=== PATIENT | male | born 1960 | race Caucasian/White ===

== ENCOUNTER → 2018-04-29 | Outpatient (CLI) | payer BC ==
--- NOTE | 2018-04-29 13:26 | MR ---
EXAMINATION TYPE: MR angio head wo con DATE OF EXAM: 04/29/2018 COMPARISON: NONE HISTORY: Vascular headaches TECHNIQUE: Utilizing 3-D [id number] intracranial MRA of the [place] of [place] was performed. FINDINGS: The vertebrobasilar and carotid systems are patent. There is mild fusiform prominence of the right M CA trifurcation but no saccular aneurysm. Measures approximately 2 mm on the right compared to the le ft which measures 1 mm.. Posterior cerebral artery on the left originates from the anterior circulat ion. IMPRESSION: 1. There is mild fusiform prominence of the trifurcation of the right middle cerebral artery without distinct evidence of saccular aneurysm. This could be followed on a 6 month basis to confirm stabili ty.
--- NOTE | 2018-04-29 14:09 | MR ---
EXAMINATION TYPE: MR brain wo con DATE OF EXAM: 04/29/2018 COMPARISON: NONE HISTORY: Vascular headaches T1-weighted sagittal, T2, FLAIR, and diffusion axial, and T2 coronal coronal views of the brain are s ubmitted. There is no evidence of acute ischemia. The ventricles, basal cisterns, and sulci overlying the conv exities are consistent with the patient's age. There is no mass effect. Craniocervical junction maintained. Sella turcica has a normal appearance. Changes of chronic sinusit is noted. White matter: There are a couple less than 5 mm areas of abnormal signal within the left parietal whi te matter of doubtful significance Nasal septal deviation noted No cerebellopontine angle mass. IMPRESSION: 1. No acute intracranial process there are 2 tiny foci of abnormal signal the white matter questionab le significance located within the left parietal deep white matter.
== END | disposition home or self-care (01) ==
LOC: RADMRIMAIN 11:40
PROVIDERS: ATTEND Psychiatry & Neurology Neurology
DX: G44.1 Vascular headache, not elsewhere classified (principal); Z82.49 Family history of ischemic heart disease and other diseases of the circulatory system; Z86.73 Personal history of transient ischemic attack (TIA), and cerebral infarction without residual deficits
CPT/HCPCS: 70544; 70551

== ENCOUNTER → 2020-05-19 | Outpatient (CLI) | payer BC ==
--- NOTE | 2020-05-19 09:56 | CTL ---
EXAMINATION TYPE: CT Low Dose Lung DATE OF EXAM ORDERED: 05/19/2020 HISTORY: Personal history of tobacco use. Current everyday smoker. Productive cough. Lung cancer scre ening CT DLP: [address] CTDI: 2.03 mGy Automated exposure control for dose reduction was used. SCREENING VISIT: Yes COMPARISON: None TECHNIQUE: Low dose computed tomography scan was performed through the chest at 1 mm thick sections a nd reconstructed images in the coronal plane at [address] DIAGNOSTIC QUALITY: Satisfactory FINDINGS: LUNG NODULES: Present, detailed below: Right lower lobe solid 4 mm nodule (5:200). Right upper lobe subpleural solid 4 mm nodule (5:70, 6:160). Right upper lobe nodule solid 2 mm nodule (5:39). Right upper lobe solid 2 mm nodule (5:69). Left upper lobe calcified 2 mm granuloma (5:109). LUNGS: COPD: Severity: Mild Fibrosis: Severity: Mild Lymph nodes: None Other findings: Mild bronchiectasis. Mild debris within the mainstem bronchi. RIGHT PLEURAL SPACE: Effusion: None Calcification: None Thickening: None Pneumothorax: None LEFT PLEURAL SPACE: Effusion: None Calcification: None Thickening: None Pneumothorax: None HEART: Heart Size: Normal Coronary calcification: Mild Pericardial effusion: None OTHER FINDINGS: Upper abdomen: Calcified splenic granuloma Bony thorax: No acute osseous abnormality Supraclavicular region: Normal Other: IMPRESSION: 1. Scattered pulmonary nodules up to 4 mm. 2. Emphysematous changes with mild debris seen within the mainstem bronchi. FOLLOW UP CT CHEST RECOMMENDATION: Annual low-dose lung CT screening CT LUNG RAD: Lung-Rad 2 Benign Appearance or Behavior
== END | disposition home or self-care (01) ==
LOC: RADCTMAIN 08:01
PROVIDERS: ATTEND Family Medicine
DX: Z12.2 Encounter for screening for malignant neoplasm of respiratory organs (principal); J43.9 Emphysema, unspecified; R91.8 Other nonspecific abnormal finding of lung field; F17.210 Nicotine dependence, cigarettes, uncomplicated

== ENCOUNTER → 2022-07-19 | Outpatient (CLI) | payer OTHER ==
--- NOTE | 2022-07-19 10:27 | CA ---
Exercise Stress Test Report Name: Chong Mott Exam Date: 07/19/2022 08:52 Exam Location: [place] Stress Ht (in): 72 Wt (lb): 220 BSA: 2.22 Ordering Phys: Bernardino Tang MD Referring Phys: TJ, Technologist: Romario Sow Age: 61 Gender: M : 1960 Procedure CPT: Indications: I10 HTN, Z82.49 FAMILY HX OF ISCHEM HEART DIS ICD-10 Codes: Patient History: Family history of heart disease and Shortness of breath Medications: Meds past 24 hrs: Pretest Chest Pain: STRESS TEST Mychal Protocol Exercise Duration (min:sec): 07:[address] Depressions (mm): Angina Score: Bhatia Score: Resting HR (bpm): 55 Peak HR (bpm): 153 Resting BP (mmHg): 128 / 86 Peak BP (mmHg): 191 / 113 MPHR: 157 Target HR: 133 % MPHR: 97 METS: 8.9 Total Dose: Peak Dose: Atropine: Double Product: 29256 BP Response: Stress Termination: Reached target heart rate Stress Symptoms: No chest pain or symptoms Stress Summary: ECG ANALYSIS Resting ECG: Normal sinus rhythm left axis deviation and poor R-wave progression Stress ECG: Average exercise tolerance Negative stress test by EKG criteria CONCLUSIONS Average exercise tolerance Negative stress test by EKG criteria PVCs including couplets were noted at peak exercise Dr. Rafa Holland MD (Electronically Signed) Final Date: 19 July 2022 10:26
== END | disposition home or self-care (01) ==
LOC: RADNMMAIN 08:26
PROVIDERS: ATTEND Family Medicine
DX: I10 Essential (primary) hypertension (principal); Z82.49 Family history of ischemic heart disease and other diseases of the circulatory system
CPT/HCPCS: 93017

== ENCOUNTER 2023-12-17 06:37 | Day surgery (SDC) | payer MEDICARE, OTHER ==
[~2023-12-17 06:37] MED LIST: LIDOCAINE 1% (10MG/ML) FOR IV START INTRADERMA PRN
[2023-12-17] MEDS ORDERED: HYDROmorphone 0.5 MG/0.5 ML SYRINGE IVP PRN (07:00)
[2023-12-17] MEDS ORDERED: MIDAZOLAM 2 MG/2 ML VIAL IV PRN (07:00)
[2023-12-17] MEDS: LACTATED RINGERS 1,000 ML IV SCH (07:16)
[2023-12-17] MEDS: ACETAMINOPHEN TAB 500 MG TAB PO PRN (07:51)
[2023-12-17] MEDS: DEXAMETHASONE SOD PHOSPHATE 4 MG/ML 1 ML VIAL IV ONE (07:51)
[2023-12-17] MEDS: ONDANSETRON 4 MG/2 ML VIAL IVP ONE (07:51)
[2023-12-17 07:54] VITALS: TEMP 97
[2023-12-17] MEDS: MIDAZOLAM 2 MG/2 ML VIAL IVP ONE (07:57)
--- NOTE | 2023-12-17 08:15 | P.ANPRN ---
Procedure Note - Anesthesia - Nerve Block Performed Right Erector Spinae Single Time Out Performed: Yes Date of Procedure: 12/17/23 Procedure Start Time: 07:57 Procedure Stop Time: 08:02 Location of Patient: PreOp Indication: Acute Post-Operative Pain, Requested by Surgeon Sedation Type: Sedate with meaningful contact maintained Preparation: Sterile Prep Position: Prone Catheter: None Needle Types: Pajunk Needle Gauge: 21 Ultrasound used to visualize needle placement: Yes Ultrasound used to observe medication spread: Yes Injectate: 0.5% Ropivacaine (see comment for volume) (Ropiv 20mdecadron 4mg----each side . At T11 level) Blood Aspirated: No Pain Paresthesia on Injection Noted: No Resistance on Injection: Normal Image Stored and Saved: Yes
[2023-12-17 08:17] LABS: ALT 74 U/L (4-49); AST 52 U/L (17-59); African American GFR (CKD) >90 (>60 ml/min/1.73 sqM); Albumin 3.9 g/dL (3.5-5.0); Alkaline Phosphatase 72 U/L (38-126); Anion Gap 8 mmol/L; Blood Urea Nitrogen 22 mg/dL (9-20); Calcium 8.9 mg/dL (8.4-10.2); Carbon Dioxide 20 mmol/L (22-30); Chloride 110 mmol/L (98-107); Glucose 132 mg/dL (74-99); Non-African American GFR(CKD) >90 (>60 ml/min/1.73 sqM); Sodium 138 mmol/L (137-145); Total Bilirubin 0.8 mg/dL (0.2-1.3); Total Protein 6.7 g/dL (6.3-8.2)
[2023-12-17] MEDS: HEPARIN SODIUM,PORCINE 5,000 UNIT/ML 1 ML VIAL SQ PRN (08:17)
[2023-12-17] MEDS ORDERED: ROCURONIUM 10 MG/ML (5 ML VIAL) IV ONE (08:31)
[2023-12-17] MEDS ORDERED: KETOROLAC 15 MG/ML 1 ML VIAL ONE (08:31)
[2023-12-17] MEDS ORDERED: SUCCINYLCHOLINE CHLORIDE 200 MG/10 ML VIAL IV ONE (08:31)
[2023-12-17] MEDS ORDERED: ROPIVACAINE 5 MG/ML 30 ML VIAL ONE (08:31)
[2023-12-17] MEDS ORDERED: DEXAMETHASONE SOD PHOSPHATE 4 MG/ML 1 ML VIAL ONE (08:31)
[2023-12-17] MEDS ORDERED: GLYCOPYRROLATE 0.2 MG/ML 2 ML VIAL ONE (08:31)
[2023-12-17] MEDS ORDERED: fentaNYL (PF) 50 MCG/ML 2 ML AMP ONE (08:31)
[2023-12-17] MEDS ORDERED: PROPOFOL 10 MG/ML 20 ML VIAL IV ONE (08:31)
[2023-12-17] MEDS ORDERED: LIDOCAINE 1% INJ 10MG/ML (20 ML MDV) ONE (08:31)
[2023-12-17] MEDS ORDERED: KETAMINE HCL IN 0.9 % NACL 50 MG/5 ML SYRINGE ONE (08:31)
[2023-12-17] MEDS ORDERED: NEOSTIGMINE 1 MG/ML 10 ML VIAL ONE (08:31)
--- NOTE | 2023-12-17 09:40 | P.OP ---
Date of Procedure: 12/17/23 Preoperative Diagnosis: Right inguinal hernia, right hydrocele Postoperative Diagnosis: Same Procedure(s) Performed: Open repair of right inguinal hernia Excision of right hydrocele Anesthesia: JENNIFER Surgeon: Bernardino Taylor Estimated Blood Loss (ml): 10 Pathology: other (Right inguinal hernia) Condition: stable Disposition: PACU Description of Procedure: The patient's placed on the operative table in the supine position. He received general endotracheal tube anesthesia.His abdomen was prepped and draped usual sterile fashion. The standard inguinal hernia incision was made in the right inguinal area. Electrocautery and sharp and blunt dissection the subcutaneous tissue divided. The fascia extremity was exposed. A sabine in the fascia was made with a 15 blade and then using a pair metastases months scissors the fascia was opened. The hernia sac was seen. Hernia sac was dissected from the anterior medial area of the cord. The hernia sac underwent high ligation with 0 Vicryl tie. The testicle prWas brought up in the wound. The testicle was examined and there was a large hydrocele. Hydrocele was opened is electrocautery. The hydrocele was drained. Testicles placed back in the scrotum. The hernias repaired using the Prolene hernia mesh system. The mediu m-sized mesh was placed into the prepared space. Inferiorly the expanded. The superior leaf was attached to the pubic tubercle medially. The lateral leaf was incised and wrapped around the cord and secured with 2-0 Prolene suture. The fascia external oblique was then closed with 0 Vicryl. Trista's fascia closed with 2-0 Vicryl. Skin was closed with interrupted 3-0 Monocryl suture. Dermabond was applied. Patient top she will. She was sent to recovery in stable condition.
[2023-12-17] MEDS: HYDROmorphone 0.5 MG/0.5 ML SYRINGE IVP ONE ×2 (10:05→10:13)
[2023-12-17] MEDS: LACTATED RINGERS 1,000 ML IV ONE (10:07)
[2023-12-17 11:16] VITALS: BP 146/89; PULSE 70; RESP 16
== END 2023-12-17 11:45 | disposition home or self-care (01) ==
LOC: OR 06:37
PROVIDERS: ATTEND Surgery
DX: K40.90 Unilateral inguinal hernia, without obstruction or gangrene, not specified as recurrent (principal); N43.3 Hydrocele, unspecified; I10 Essential (primary) hypertension; E78.5 Hyperlipidemia, unspecified; K21.9 Gastro-esophageal reflux disease without esophagitis; Z87.891 Personal history of nicotine dependence; Z79.899 Other long term (current) drug therapy; Z98.890 Other specified postprocedural states
CPT/HCPCS: 49505; 55040; 64999; 80053; 88302; C1781; J2250; J0330; J1644; J1100; J2710; J0690; J2405; J2001; J3010; J2795; J1885; J2704; J1170

== ENCOUNTER 2024-09-09 12:18 | Emergency (ER) | payer MEDICARE ==
--- NOTE | 2024-09-09 13:32 | ED ---
Wound/Laceration HPI - General Chief Complaint: Wound/Laceration Stated Complaint: Post op complications, fever Time Seen by Provider: 09/09/24 13:29 Source: patient, RN notes reviewed Mode of arrival: wheelchair Limitations: no limitations - History of Present Illness Initial Comments: 64-year-old male presenting for postop complications. Patient had hydrocelectomy by Dr. Reeder 8 days ago at [facility]. Patient states he has had increasing pain and redness at incision site. Patient also reports a fever at home last night. Patient is urinating normally. Patient has scheduled postop follow-up for September. Tolerating orals well. - Related Data Home Medications Medication Instructions Recorded Confirmed lisinopriL [Lisinopril] 10 mg PO HS 06/30/16 12/17/23 Aspirin 325 mg PO DAILY 12/12/23 12/17/23 Atorvastatin [Lipitor] 40 mg PO HS 12/12/23 12/17/23 Melatonin Sleep 1 tab PO HS PRN 12/12/23 12/17/23 Omeprazole 20 mg PO HS 12/12/23 12/17/23 amLODIPine [Norvasc] 5 mg PO HS 12/12/23 12/17/23 tadalafiL [Cialis] 20 mg PO DAILY PRN 12/12/23 12/17/23 traZODone HCL 100 mg PO HS PRN 12/12/23 12/17/23 Previous Rx's Medication Instructions Recorded Acetaminophen Tab [Tylenol] 650 mg PO Q6H #30 tab 12/17/23 Docusate [Colace] 100 mg PO BID #20 capsule 12/17/23 Ibuprofen [Motrin] 600 mg PO Q6HR PRN #40 tab 12/17/23 oxyCODONE HCL [OxyIR] 5 mg PO Q6H PRN 3 Days #10 tab 12/17/23 Amoxic-Pot Clav 875-125Mg 1 tab PO Q12HR #20 tab 09/09/24 [Augmentin 875-125] Allergies Allergy/AdvReac Type Severity Reaction Status Date / Time No Known Allergies Allergy Verified 09/09/24 12:50 Review of Systems ROS Statement: Those systems with pertinent positive or pertinent negative responses have been documented in the HPI. ROS Other: All systems not noted in ROS Statement are negative. Past Medical History Past Medical History: GERD/Reflux, Hyperlipidemia, Hypertension, Liver Disease Additional Past Medical History / Comment(s): High triglycerides, high liver enzymes History of Any Multi-Drug Resistant Organisms: None Reported Past Surgical History: Orthopedic Surgery Additional Past Surgical History / Comment(s): Eye surgeries for strabismus, bunionectomy removed from foot, cyst removed R arm, bone graft wrist. Past Anesthesia/Blood Transfusion Reactions: No Reported Reaction Past Psychological History: No Psychological Hx Reported Smoking Status: Former smoker Past Alcohol Use History: Occasional Past Drug Use History: None Reported - Past Family History Father Family Medical History: Myocardial Infarction (PR) Additional Family Medical History / Comment(s): of PR at 49 yrs. Mother Family Medical History: Diabetes Mellitus, Liver Disease Additional Family Medical History / Comment(s): of cirrhosis at age 66yrs. Brother(s) Family Medical History: Myocardial Infarction (PR) Additional Family Medical History / Comment(s): at age 66 yrs of PR, another brother at age 55yrs of PR General Exam Limitations: no limitations General appearance: alert, in no apparent distress Head exam: Present: atraumatic, normocephalic, normal inspection Eye exam: Present: normal appearance, PERRL, EOMI. Absent: scleral icterus, conjunctival injection, periorbital swelling exam: Present: scrotal swelling, other (GABE Frias present for examination. There is large amount of edema, erythema, and warmth right scrotum. There is moderate dehiscence at scrotal incision site with no active bleeding or purulent drainage) Neurological exam: Present: alert, oriented X3 Psychiatric exam: Present: normal affect, normal mood Skin exam: Present: warm, dry, intact, normal color. Absent: rash Course Vital Signs 09/09/24 09/09/24 09/09/24 12:50 14:00 15:50 Temperature 98.6 F 98.6 F 98.7 F Pulse Rate 83 80 81 Respiratory 20 18 20 Rate Blood Pressure 118/77 120/82 122/77 O2 Sat by Pulse 96 96 96 Oximetry Medical Decision Making - Medical Decision Making Was pt. sent in by a medical professional or institution (, PA, CHILDBIRTH EDUCATOR, urgent care, hospital, or prison...) When possible be specific @ -No Did you speak to anyone other than the patient for history (EMS, parent, family, police, friend...)? What history was obtained from this source @ -No Did you review nursing and triage notes (agree or disagree)? Why? @ -I reviewed and agree with nursing and triage notes Were old charts reviewed (outside hosp., previous admission, EMS record, old EKG, old radiological studies, urgent care reports/EKG's, prison records)? Report findings @ -No old charts were reviewed Differential Diagnosis (chest pain, altered mental status, abdominal pain women, abdominal pain men, vaginal bleeding, weakness, fever, dyspnea, syncope, headache, dizziness, GI bleed, back pain, seizure, CVA, palpatations, mental health, musculoskeletal)? @ -Incisional dehiscence, scrotal abscess, cellulitis, seroma, sepsis EKG interpreted by me (3pts min.). @ -None X-rays interpreted by me (1pt min.). @ -None done CT interpreted by me (1pt min.). @ -None done U/S interpreted by me (1pt. min.). @ -Ultrasound scrotum reveals no evidence of torsion or mass, fluid collection 4.5 cm and surrounding hypervascularity possible abscess versus loculated seroma What testing was considered but not performed or refused? (CT, X-rays, U/S, labs)? Why? @ -None What meds were considered but not given or refused? Why? @ -None Did you discuss the management of the patient with other professionals (professionals i.e. , PA, CHILDBIRTH EDUCATOR, lab, RT, psych nurse, psychotherapist social worker, loading machine tool setter, teacher, investigation officer, porter sample case)? Give summary @ -No Was smoking cessation discussed for >3mins.? @ -No Was critical care preformed (if so, how long)? @ -No Were there social determinants of health that impacted care today? How? (Homelessness, low income, unemployed, alcoholism, drug addiction, transportation, low edu. Level, literacy, decrease access to med. care, intermediate, rehab)? @ -No Was there de-escalation of care discussed even if they declined (Discuss DNR or withdrawal of care, Hospice)? DNR status @ -No What co-morbidities impacted this encounter? (DM, HTN, Smoking, COPD, CAD, Cancer, CVA, ARF, Chemo, Hep., AIDS, mental health diagnosis, sleep apnea, morbid obesity)? @ -None Was patient admitted / discharged? Hospital course, mention meds given and route, prescriptions, significant lab abnormalities, going to OR and other pertinent info. @ -Discharge. This is a 64-year-old male presenting for postop complication. Patient underwent hydrocelectomy [address] Reeder urologist from [facility]. Patient is endorsing increased swelling and redness to scrotum. Vital signs within acceptable limits. Physical examination with button facing machine operator Rodriguez BERNAL reveals diffuse edema, erythema, and warmth to right scrotum with 1 inch dehiscence of incision. No purulent drainage from incision site. Lab work remarkable for CRP 5.2, otherwise unremarkable, white blood cell count stable at 8.7. Ultrasound scrotum reveals no evidence of torsion or mass, fluid collection 4.5 cm and surrounding hypervascularity possible abscess versus loculated seroma. I attempted to contact Dr. Reeder as pt states he is in office today till 3 PM, however there was no response. Patient educated on results of workup. Discussed with patient that I highly recommend transfer to [facility] at this time for further workup as there is a possibility there is a scrotal abscess which could possibly result in sepsis. Patient is of sound mind at this time and states he would like to be discharged. Patient fully understands risks of declining transfer to [facility] which include worsening of symptoms, sepsis, or . Antibiotics prescribed to pharmacy. Strict return precautions and follow-up care discussed with patient. Case was discussed with my ED attending Dr. Luke. Undiagnosed new problem with uncertain prognosis? @ -No Drug Therapy requiring intensive monitoring for toxicity (Heparin, Nitro, Insulin, Cardizem)? @ -No Were any procedures done? @ -No Diagnosis/symptom? @ -Postop complication, scrotal swelling Acute, or Chronic, or Acute on Chronic? @ -Acute Uncomplicated (without systemic symptoms) or Complicated (systemic symptoms)? @ -Complicated Side effects of treatment? @ -No Exacerbation, Progression, or Severe Exacerbation? @ -No Poses a threat to life or bodily function? How? (Chest pain, [place], PR, pneumonia, PE, COPD, DKA, ARF, appy, cholecystitis, CVA, Diverticulitis, Homicidal, Suicidal, threat to staff... and all critical care pts) @ -Yes - Lab Data Result diagrams: 09/09/24 13:32 09/09/24 13:32 Lab Results 09/09/24 09/09/24 09/09/24 Range/Units 13:32 13:32 13:32 WBC 8.7 (3.8-10.6) k/uL RBC 5.26 (4.30-5.90) m/uL Hgb 16.9 (13.0-17.5) gm/dL Hct 49.3 (39.0-53.0) % MCV 93.8 (80.0-100.0) fL MCH 32.2 (25.0-35.0) pg MCHC 34.4 (31.0-37.0) g/dL RDW 12.7 (11.5-15.5) % Plt Count 156 (150-450) k/uL MPV 6.8 Neutrophils % 65 % Lymphocytes % 26 % Monocytes % 7 % Eosinophils % 0 % Basophils % 1 % Neutrophils # 5.7 (1.3-7.7) k/uL Lymphocytes # 2.2 (1.0-4.8) k/uL Monocytes # 0.6 (0-1.0) k/uL Eosinophils # 0.0 (0-0.7) k/uL Basophils # 0.1 (0-0.2) k/uL Sodium 135 L (137-145) mmol/L Potassium 4.0 (3.5-5.1) mmol/L Chloride 109 H (98-107) mmol/L Carbon Dioxide 18 L (22-30) mmol/L Anion Gap 8 mmol/L BUN 19 (9-20) mg/dL Creatinine 0.95 (0.66-1.25) mg/dL Est GFR (CKD-EPI)AfAm >90 (>60 ml/min/1.73 sqM) Est GFR (CKD-EPI)NonAf 84 (>60 ml/min/1.73 sqM) Glucose 176 H (74-99) mg/dL Plasma Lactic Acid Jeremiah (0.7-2.0) mmol/L Calcium 9.6 (8.4-10.2) mg/dL Total Bilirubin 1.4 H (0.2-1.3) mg/dL AST 30 (17-59) U/L ALT 43 (4-49) U/L Alkaline Phosphatase 73 (38-126) U/L C-Reactive Protein 5.2 H (<1.0) mg/dL Total Protein 7.0 (6.3-8.2) g/dL Albumin 4.1 (3.5-5.0) g/dL Influenza Type A (PCR) Not Detected (Not Detectd) Influenza Type B (PCR) Not Detected (Not Detectd) RSV (PCR) Not Detected (Not Detectd) SARS-CoV-2 (PCR) Not Detected (Not Detectd) 09/09/24 Range/Units 13:32 WBC (3.8-10.6) k/uL RBC (4.30-5.90) m/uL Hgb (13.0-17.5) gm/dL Hct (39.0-53.0) % MCV (80.0-100.0) fL MCH (25.0-35.0) pg MCHC (31.0-37.0) g/dL RDW (11.5-15.5) % Plt Count (150-450) k/uL MPV Neutrophils % % Lymphocytes % % Monocytes % % Eosinophils % % Basophils % % Neutrophils # (1.3-7.7) k/uL Lymphocytes # (1.0-4.8) k/uL Monocytes # (0-1.0) k/uL Eosinophils # (0-0.7) k/uL Basophils # (0-0.2) k/uL Sodium (137-145) mmol/L Potassium (3.5-5.1) mmol/L Chloride (98-107) mmol/L Carbon Dioxide (22-30) mmol/L Anion Gap mmol/L BUN (9-20) mg/dL Creatinine (0.66-1.25) mg/dL Est GFR (CKD-EPI)AfAm (>60 ml/min/1.73 sqM) Est GFR (CKD-EPI)NonAf (>60 ml/min/1.73 sqM) Glucose (74-99) mg/dL Plasma Lactic Acid Jeremiah 1.7 (0.7-2.0) mmol/L Calcium (8.4-10.2) mg/dL Total Bilirubin (0.2-1.3) mg/dL AST (17-59) U/L ALT (4-49) U/L Alkaline Phosphatase (38-126) U/L C-Reactive Protein (<1.0) mg/dL Total Protein (6.3-8.2) g/dL Albumin (3.5-5.0) g/dL Influenza Type A (PCR) (Not Detectd) Influenza Type B (PCR) (Not Detectd) RSV (PCR) (Not Detectd) SARS-CoV-2 (PCR) (Not Detectd) Disposition Clinical Impression: Post op infection, Scrotal swelling Disposition: HOME SELF-CARE Condition: Stable Additional Instructions: Take Augmentin as prescribed. Transfer to [facility] was recommended today for further evaluation. We discussed potential risks of discharge home today including worsening of infection or possible sepsis. Advised close follow-up with surgeon. Please return to the Emergency Department if symptoms worsen or any other concerns. Prescriptions: Amoxic-Pot Clav 875-125Mg [Augmentin 875-125] 1 tab PO Q12HR #20 tab Is patient prescribed a controlled substance at d/c from ED?: No Referrals: Bernardino Tang MD [Primary Care Provider] - 1-2 days Time of Disposition: 15:46
[2024-09-09] MEDS: KETOROLAC 15 MG/ML 1 ML VIAL IVP STA (13:43)
[2024-09-09 13:50] LABS: Basophils # (A) 0.1 k/uL (0-0.2); Basophils % (A) 1 %; Eosinophils % (A) 0 %; HCT 49.3 % (39.0-53.0); HGB 16.9 gm/dL (13.0-17.5); Lymphocytes # (A) 2.2 k/uL (1.0-4.8); Lymphocytes % (A) 26 %; MCH 32.2 pg (25.0-35.0); MCHC 34.4 g/dL (31.0-37.0); MCV 93.8 fL (80.0-100.0); Mean Platelet Volume 6.8; Monocytes # (A) 0.6 k/uL (0-1.0); Monocytes % (A) 7 %; Neutrophils # (A) 5.7 k/uL (1.3-7.7); Neutrophils % (A) 65 %; Platelet Count 156 k/uL (150-450); RBC 5.26 m/uL (4.30-5.90); RDW 12.7 % (11.5-15.5); WBC 8.7 k/uL (3.8-10.6)
[2024-09-09 14:34] LABS: ALT 43 U/L (4-49); AST 30 U/L (17-59); African American GFR (CKD) >90 (>60 ml/min/1.73 sqM); Albumin 4.1 g/dL (3.5-5.0); Alkaline Phosphatase 73 U/L (38-126); Anion Gap 8 mmol/L; Blood Urea Nitrogen 19 mg/dL (9-20); C Reactive Protein 5.2 mg/dL (<1.0); Calcium 9.6 mg/dL (8.4-10.2); Carbon Dioxide 18 mmol/L (22-30); Chloride 109 mmol/L (98-107); Glucose 176 mg/dL (74-99); Non-African American GFR(CKD) 84 (>60 ml/min/1.73 sqM); Sodium 135 mmol/L (137-145); Total Bilirubin 1.4 mg/dL (0.2-1.3)
--- NOTE | 2024-09-09 14:42 | US ---
EXAMINATION TYPE: US scrotum with doppler. DATE OF EXAM: 09/09/2024 COMPARISON: NONE CLINICAL INDICATION: Male, 64 years old with history of scrotal swelling/redness; swelling and rednes s. Pt had a hydrocelectomy 8 days ago on the right side. TECHNIQUE: Grayscale, color Doppler and spectral Doppler imaging of the scrotum. FINDINGS: EXAM MEASUREMENTS: TESTICLES: Right Testicle: 4.3 x 3.2 x 3.3 cm Left Testicle: 3.9 x 3.4 x 3.3 cm EPIDIDYMIS HEAD: Right Epididymis: 1.0 cm Left Epididymis: 0.5 cm Doppler performed to assess for testicular vascularity; good bilateral color flow and spectral wavefo radha are seen. There is no evidence of testicular torsion. Presence of hydroceles: yes on left side Presence of varicoceles: Yes on left side fluid collection seen in right scrotum with septations measuring 4.5 x 3.5 x 3.1cm. This demonstrates anechoic fluid. Hypervascularity seen around this area. Anechoic area seen measuring 2.8 x 1.8 x 0.7 cm in the right inguinal canal. Possible hypervascularity seen in right testicle and epididymis compared to left. IMPRESSION: 1. No evidence of testicular torsion or mass. 2. Hypervascularity seen within the right testicle and epididymis suggestive of epididymal orchitis. 3. Septated fluid collection within the right scrotum with anechoic fluid measuring up to 4.5 cm and surrounding hypervascularity. Raises concern for possible abscess versus loculated seroma in the sett ing of recent surgery. 4. Small left hydrocele. 5. Left-sided varicocele. 6. Simple appearing fluid within the right inguinal canal. [facility], , 09/09/2024 2:39 PM
[2024-09-09 15:52] VITALS: BP 122/77; PULSE 81; RESP 20; TEMP 98.7
== END 2024-09-09 15:50 | disposition home or self-care (01) ==
LOC: EC 12:18
DX: T81.40XA Infection following a procedure, unspecified, initial encounter (principal); N50.89 Other specified disorders of the male genital organs; Z87.891 Personal history of nicotine dependence
CPT/HCPCS: 36415; 80053; 83605; 85025; 86140; 87636; 93975; 76870; 99284; 96374; J1885